=== PATIENT | male | born 1955 | race Caucasian/White ===

== ENCOUNTER → 2025-08-28 12:17 | Outpatient (REF) | payer MEDICARE, BC, SELFPAY | LOC: RAD 12:17 | PROVIDERS: ATTENDING PHYSICIAN Surgery; FAMILY PHYSICIAN Family Medicine | DX: R19.03 Right lower quadrant abdominal swelling, mass and lump (principal) | CPT/HCPCS: 74177; Q9967 ==

== ENCOUNTER → 2025-09-15 08:20 | Outpatient (REF) | payer MEDICARE, BC, SELFPAY ==
[2025-09-15] VITALS (8 sets, daily range): BP systolic 70–142; BP diastolic 74–94; BMI 30.7
[2025-09-15 09:40] LABS: INR 1.03; PT 13.8 Sec (11.4-14.6)
[2025-09-15 10:22] LABS: Hematocrit 33.6 % (39.0-52.0); Hemoglobin 10.4 g/dL (13.0-18.0); Mean Corp Hgb Conc. 31.0 g/dL (33.0-37.0); Mean Corpuscular Volume 81.4 fL (80.0-94.0); Platelet Count 397 10^3/uL (130-400); Red Cell Dist. Width 17.6 % (11.5-14.5)
== END ==
LOC: RADI 08:20
PROVIDERS: ATTENDING PHYSICIAN Surgery; FAMILY PHYSICIAN Family Medicine
DX: C48.1 Malignant neoplasm of specified parts of peritoneum (principal); R10.31 Right lower quadrant pain; Z85.038 Personal history of other malignant neoplasm of large intestine; D68.8 Other specified coagulation defects
CPT/HCPCS: 36415; 49180; 77012; 85027; 85610; 88305; 88333; 88341; 88342; 99152